=== PATIENT | male | born 1970 | race Caucasian/White ===

== ENCOUNTER 2016-11-29 00:12 | Emergency (ER) | payer OTHER ==
[~2016-11-29] VITALS: Ht 182.9 cm; Wt 108.9 kg
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
[2016-11-29] MEDS ORDERED: TDAP [DIPH/PERTUSSIS/TET] 0.5 ML VIAL IM ONE ×2 (00:26→00:30)
--- NOTE | 2016-11-29 00:40 | NUR ---
patient taken to ct.
[2016-11-29] MEDS ORDERED: AMOX/CLAVULANATE 875 MG TABLET ONE (01:58)
[2016-11-29] MEDS ORDERED: AMOX/CLAVULANATE 875 MG TABLET PO ONE (02:00)
--- NOTE | 2016-11-29 02:15 | NUR ---
Patient discharged to [facility] in stable condition. Written and verbal after care instructions given. Patient verbalizes understanding of instruction, though needs reinforcement.
[2016-11-29 02:28] VITALS: BP 140/86
== END 2016-11-29 02:28 | disposition home or self-care (01) ==
LOC: ER 00:15
DX: S02.32XA Fracture of orbital floor, left side, initial encounter for closed fracture (principal); S02.40FA Zygomatic fracture, left side, initial encounter for closed fracture; S02.40DA Maxillary fracture, left side, initial encounter for closed fracture; V49.9XXA Car occupant (driver) (passenger) injured in unspecified traffic accident, initial encounter; Y93.89 Activity, other specified; Y92.413 State road as the place of occurrence of the external cause; Y99.8 Other external cause status; Z85.528 Personal history of other malignant neoplasm of kidney; Z90.5 Acquired absence of kidney
CPT/HCPCS: 70450; 70486; 90471; 90715; 99284; A4606; Z7610